=== PATIENT | male | born 1960 | race Caucasian/White ===

== ENCOUNTER 2016-08-12 06:57 | Emergency (ER) | payer BC, OTHER ==
[2016-08-12] MEDS ORDERED: ONDANSETRON HCL INJ/PF 4 MG/2 ML SDV ONE (08:22)
[2016-08-12] MEDS ORDERED: ASPIRIN 81 MG TABLET, CHEWABLE PO ONE (08:45)
[2016-08-12] MEDS ORDERED: MECLIZINE HCL 25 MG TABLET PO ONE ×2 (08:46→09:11)
[2016-08-12 08:55] LABS: ABSOLUTE BASOPHILS # (AUTO) 0.1 10^3/uL (0.0-0.2); ABSOLUTE EOSINOPHILS # (AUTO) 0.2 10^3/uL (0.0-0.6); ABSOLUTE LYMPHOCYTES (AUTO) 1.3 10^3/uL (0.5-4.7); ABSOLUTE MONOCYTES (AUTO) 0.7 10^3/uL (0.1-1.4); ABSOLUTE NEUT (AUTO) 7.9 10^3/uL (1.7-8.2); BASOPHILS % (AUTO) 0.8 % (0-2); EOSINOPHILS % (AUTO) 2.1 % (0-6); HEMATOCRIT 42.1 % (37.9-51.0); HEMOGLOBIN 14.2 g/dL (13.5-17.0); HGB HCT DIFFERENCE 0.5; LYMPHOCYTES % (AUTO) 12.7 % (13-45); MEAN CORPUSCULAR HGB CONC 33.6 g/dL (32.0-36.0); MEAN CORPUSCULAR VOLUME 92 fl (80-97); MONOCYTES % (AUTO) 6.7 % (3-13); RED BLOOD COUNT 4.57 10^6/uL (4.35-5.55); RED CELL DISTRIBUTION WIDTH 14.6 % (11.5-14.0); SEGMENTED NEUTROPHILS % (AUTO) 77.7 % (42-78); WHITE BLOOD COUNT 10.2 10^3/uL (4.0-10.5)
[2016-08-12 09:09] LABS: ALANINE AMINOTRANSFERASE 40 U/L (21-72); ALBUMIN 4.5 g/dL (3.5-5.0); ALKALINE PHOSPHATASE 62 U/L (38-126); ANION GAP 13 (5-19); ASPARTATE AMINO TRANSFERASE 23 U/L (17-59); BILIRUBIN,TOTAL 0.6 mg/dL (0.2-1.3); BLOOD UREA NITROGEN 21 mg/dL (7-20); CALCIUM 9.6 mg/dL (8.4-10.2); CARBON DIOXIDE 24 mmol/L (22-30); CHLORIDE 104 mmol/L (98-107); CREATINE KINASE 184 U/L (55-170); CREATININE RESULT 0.72 mg/dL (0.52-1.25); GLUCOSE 134 mg/dL (75-110); LIPASE 332.7 U/L (23-300); MAGNESIUM 1.9 mg/dL (1.6-2.3); POTASSIUM 4.8 mmol/L (3.6-5.0); SODIUM 140.6 mmol/L (137-145); TOTAL PROTEIN 7.1 g/dL (6.3-8.2)
--- NOTE | 2016-08-12 09:12 | ER Document Report ---
ED Dizziness/Weakness - General Chief Complaint: Syncope Stated Complaint: HEADACHE,NAUSEA,VOMITING Mode of Arrival: Ambulatory Information source: Patient Notes: Patient states that he woke up around 2:00 this morning while he was in bed complaining of tunnel vision, dizziness and a headache. Patient states headache pain lasted for about 3 hours. Patient states that around 5:00 he got out of bed and became so dizzy that it caused him to fall to his knees. Patient denies any loss of consciousness. Patient does report that the dizziness made him nauseous and he vomited one time. Patient states around this time he did develop some chest discomfort that he describes as an irritation. Patient states that he was not too concerned with the chest discomfort as he has had multiple episodes of pericarditis in the past. Patient states that headache pain has presently resolved. Patient denies any shortness of breath. Patient states that dizzy symptoms are resolved whenever he is lying supine and not moving. TRAVEL OUTSIDE OF THE [place] IN LAST 30 DAYS: No - HPI Patient complains to provider of: Dizziness, Vertigo Onset: This morning Onset/Duration: Persistent Quality of pain: Burning Pain Level: 1 Context: Vertigo Associated symptoms: Chest pain, Dizzy, Headache, Vertigo, Vomiting Exacerbated by: Change in position Baseline gait: Walks w/o assistance - Related Data Allergies/Adverse Reactions: No Known Allergies Allergy (Unverified 08/12/16 07:11) Past Medical History - General Information source: Patient - Social History Smoking Status: Current Some Day Smoker Chew tobacco use (# tins/day): No Frequency of alcohol use: Social Drug Abuse: None 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 Lives with: Spouse/Significant other Family History: Reviewed & Not Pertinent Patient has suicidal ideation: No Patient has homicidal ideation: No - Past Medical History Cardiac Medical History: Reports: Hx Hypercholesterolemia, Other - Pericarditis Neurological Medical History: Reports: Hx Migraine Endocrine Medical History: Reports: Hx Diabetes Mellitus Type 2 Renal/ Medical History: Denies: Hx Peritoneal Dialysis Musculoskeltal Medical History: Reports Hx Arthritis - Rheumatoid arthritis Past Surgical History: Reports: Hx Herniorrhaphy, Other - Left eye surgery after injury Review of Systems - Review of Systems Constitutional: No symptoms reported. denies: Fever, Recent illness EENT: No symptoms reported. denies: Ear pain, Nose congestion, Nose discharge, Sinus pressure Cardiovascular: Chest pain, Dizziness Respiratory: No symptoms reported. denies: Cough, Short of breath Gastrointestinal: Nausea, Vomiting. denies: Abdominal pain, Diarrhea Genitourinary: No symptoms reported Male Genitourinary: No symptoms reported Musculoskeletal: No symptoms reported Skin: No symptoms reported. denies: Rash Hematologic/Lymphatic: No symptoms reported Neurological/Psychological: Headaches. denies: Confusion Physical Exam - Vital signs Vitals: Temp Pulse Resp BP Pulse Ox 97.2 F 66 22 H 147/86 H 98 08/12/16 07:00 08/12/16 07:00 08/12/16 07:00 08/12/16 07:00 08/12/16 07:00 - General General appearance: Appears well, Alert In distress: None - HEENT Head: Normocephalic, Atraumatic Eyes: Other - Left pupil irregularity Conjunctiva: Normal Pupils: PERRL - Right pupil 2 mm Ears: Normal External canal: Normal Tympanic membrane: Normal Nasal: Normal. No: Clear rhinorrhea Mouth/Lips: Normal Mucous membranes: Normal Pharynx: Normal. No: Exudate, Peritonsillar abscess, Tonsillar hypertrophy Neck: Normal, Supple. No: Lymphadenopathy, Meningismus - Respiratory Respiratory status: No respiratory distress Chest status: Nontender Breath sounds: Normal. No: Rales, Rhonchi, Stridor, Wheezing Chest palpation: Normal. No: [place] frothy sputum - Cardiovascular Rhythm: Regular Heart sounds: S1 appreciated, S2 appreciated Murmur: No - Abdominal Inspection: Obese Distension: No distension Bowel sounds: Normal Tenderness: Nontender - Back Back: Normal. No: CVA tenderness - Extremities General upper extremity: Normal inspection, Normal strength General lower extremity: Normal inspection, Normal strength - Neurological Neuro grossly intact: Yes Cognition: Normal [place] Coma Scale Eye Opening: Spontaneous [place] Coma Scale Verbal: Oriented [place] Coma Scale Motor: Obeys Commands [place] Coma Scale Total: 15 Speech: Normal Cranial nerves: Normal - Psychological Associated symptoms: Normal affect, Normal mood - Skin Skin Temperature: Warm Skin Moisture: Dry Skin Color: Normal Course - Re-evaluation Re-evalutation: 08/12/16 09:[address] Go who recommends increasing dose of meclizine to a total of 50 mg by mouth as well as CT imaging of the head. 08/12/16 11:35 Patient denies any nausea, vomiting, dizziness or chest pain symptoms at present. Patient states he feels much better. Patient does complain of mild headache that started up again, but declines taking any medication for this stating that it is only mild. 08/12/16 12:58 Patient feeling better, states that he is ready to leave. Consulted with Dr. Go regarding patient presentation and repeat diagnostic tests. Does not recommend any additional testing, agrees with plan for discharge. Recommends having patient follow up with his primary doctor tomorrow for recheck. 08/12/16 13:01 Patient advised of abnormalities and diagnostic test results including BUN, glucose, CK as well as lipase. Patient states chronically has BUN, glucose and CK tests have been abnormal. Patient advised to avoid alcohol consumption and to have his lipase test rechecked by his primary care provider - Vital Signs Vital signs: Temp Pulse Resp BP Pulse Ox 97.2 F 66 9 L 132/85 H 98 08/12/16 07:03 08/12/16 07:03 08/12/16 12:01 08/12/16 12:01 08/12/16 12:01 - Laboratory Result Diagrams: 08/12/16 08:20 08/12/16 08:20 Laboratory results interpreted by me: 08/12/16 08/12/16 08:20 08:20 RDW 14.6 H Lymphocytes % 12.7 L BUN 21 H Glucose 134 H Creatine Kinase 184 H Lipase 332.7 H 08/12/16 13:38 Labs- Entire Visit 08/12/16 08/12/16 08/12/16 08:20 08:20 08:20 WBC 10.2 RBC 4.57 Hgb 14.2 Hct 42.1 MCV 92 MCH 31.0 MCHC 33.6 RDW 14.6 H Plt Count 280 Seg Neutrophils % 77.7 Lymphocytes % 12.7 L Monocytes % 6.7 Eosinophils % 2.1 Basophils % 0.8 Absolute Neutrophils 7.9 Absolute Lymphocytes 1.3 Absolute Monocytes 0.7 Absolute Eosinophils 0.2 Absolute Basophils 0.1 Sodium 140.6 Potassium 4.8 Chloride 104 Carbon Dioxide 24 Anion Gap 13 BUN 21 H Creatinine 0.72 Est GFR ( Amer) > 60 Est GFR (Non-Af Amer) > 60 Glucose 134 H Calcium 9.6 Magnesium 1.9 Total Bilirubin 0.6 Direct Bilirubin 0.0 AST 23 ALT 40 Alkaline Phosphatase 62 Creatine Kinase 184 H CK-MB (CK-2) 3.03 Troponin I < 0.012 Total Protein 7.1 Albumin 4.5 Lipase 332.7 H Urine Color Urine Appearance Urine pH Ur Specific [place] Urine Protein Urine Glucose (UA) Urine Ketones Urine Blood Urine Nitrite Urine Bilirubin Urine Urobilinogen Ur Leukocyte Esterase Urine WBC (Auto) Urine RBC (Auto) Urine Mucus (Auto) Urine Ascorbic Acid 08/12/16 08/12/16 09:10 11:15 WBC RBC Hgb Hct MCV MCH MCHC RDW Plt Count Seg Neutrophils % Lymphocytes % Monocytes % Eosinophils % Basophils % Absolute Neutrophils Absolute Lymphocytes Absolute Monocytes Absolute Eosinophils Absolute Basophils Sodium Potassium Chloride Carbon Dioxide Anion Gap BUN Creatinine Est GFR ( Amer) Est GFR (Non-Af Amer) Glucose Calcium Magnesium Total Bilirubin Direct Bilirubin AST ALT Alkaline Phosphatase Creatine Kinase CK-MB (CK-2) Troponin I < 0.012 Total Protein Albumin Lipase Urine Color STRAW Urine Appearance CLEAR Urine pH 5.0 Ur Specific [place] 1.013 Urine Protein NEGATIVE Urine Glucose (UA) NEGATIVE Urine Ketones NEGATIVE Urine Blood NEGATIVE Urine Nitrite NEGATIVE Urine Bilirubin NEGATIVE Urine Urobilinogen NEGATIVE Ur Leukocyte Esterase NEGATIVE Urine WBC (Auto) 1 Urine RBC (Auto) 0 Urine Mucus (Auto) RARE Urine Ascorbic Acid NEGATIVE - Diagnostic Test Radiology reviewed: Reports reviewed - EKG Interpretation by [facility] EKG shows normal: Sinus rhythm Heart block present: 1st Degree Discharge - Discharge Clinical Impression: Vertigo Headache Qualifiers: Headache type: unspecified Headache chronicity pattern: unspecified pattern Intractability: not intractable Qualified Code(s): R51 - Headache Chest pain Qualifiers: Chest pain type: unspecified Qualified Code(s): R07.9 - Chest pain, unspecified Condition: Stable Disposition: HOME, SELF-CARE Instructions: Vertigo ([facility]), Chest Pain of Unclear Cause ([facility]), Meclizine ([facility]) Additional Instructions: Return immediately for any new or worsening symptoms Followup with your primary care provider, call today to make an appointment for tomorrow for follow-up Prescriptions: Meclizine HCl [Antivert 25 mg Tablet] 25 mg PO ASDIR PRN #15 tablet PRN Reason: Referrals: DANIEL GRIER DO [Primary Care Provider] - Follow up as needed ANIVAL LONDONO MD [COMMUNITY BASED STAFF] - Follow up tomorrow
[2016-08-12 09:17] LABS: CREATINE KINASE MB 3.03 ng/mL (<4.55)
[2016-08-12 09:18] LABS: TROPONIN I < 0.012 ng/mL
[2016-08-12 09:38] LABS: APPEARANCE,URINE CLEAR; BILIRUBIN,URINE NEGATIVE (NEGATIVE); GLUCOSE, URINE NEGATIVE (NEGATIVE); KETONES,URINE NEGATIVE (NEGATIVE); LEUKOCYTE ESTERASE,URINE NEGATIVE (NEGATIVE); NITRITE,URINE NEGATIVE (NEGATIVE); PROTEIN,URINE NEGATIVE (NEGATIVE); URINE SPECIFIC GRAVITY 1.013; UROBILINOGEN,URINE NEGATIVE mg/dL (<2.0)
[2016-08-12 13:02] VITALS: BP 132/85
--- NOTE | 2016-08-12 18:26 | EKG REPORT ---
SEVERITY:- ABNORMAL ECG - SINUS RHYTHM FIRST DEGREE AV BLOCK NONSPECIFIC INTRAVENTRICULAR CONDUCTION DELAY PROBABLE LEFT VENTRICULAR HYPERTROPHY : Confirmed by: Rei Monge MD 12-Aug-2016 18:24:55
== END 2016-08-12 13:10 | disposition home or self-care (01) ==
LOC: ER 06:57
DX: R42 Dizziness and giddiness (principal); R51 Headache; R11.2 Nausea with vomiting, unspecified; R07.9 Chest pain, unspecified; I44.0 Atrioventricular block, first degree; H21.562 Pupillary abnormality, left eye; F17.200 Nicotine dependence, unspecified, uncomplicated; E11.9 Type 2 diabetes mellitus without complications; Z86.79 Personal history of other diseases of the circulatory system
CPT/HCPCS: 93005; 99285; 96374; 36415; 82553; 82550; 83690; 83735; 85025; 80053; 81001; 84484; 71020; 70450; 93010; J2405

== ENCOUNTER → 2018-08-26 | Outpatient (CLI) | payer BC, OTHER ==
--- NOTE | 2018-08-27 08:46 | RADIOLOGY REPORT (SQ) ---
EXAM DESCRIPTION: MRI LT UPPER JOINT WITHOUT COMPLETED DATE/TIME: 08/26/2018 5:37 pm REASON FOR STUDY: M25.512 PAIN IN LEFT SHOULDER M25.512 PAIN IN LEFT SHOULDER COMPARISON: None. TECHNIQUE: Left shoulder images acquired and stored on PACS. Multiplanar imaging to include fat sens itive sequences such as T1, water sensitive sequences such as FST2/STIR, cartilage sensitive sequence s such as FSPD/gradient-echo sequences. LIMITATIONS: Motion. FINDINGS: BONE MARROW AND CORTEX: No worrisome bone lesions or marrow replacement. No occult fractur es. JOINT OR BURSAL EFFUSION: Rim of fluid surrounding the cuff. No significant bursal fluid collection. GLENO-HUMERAL ARTICULATION: Intact. ACROMION AND AC JOINT: Type 2 acromion. Mild AC joint arthropathy. ROTATOR CUFF AND INTERVAL: Musculature is symmetric. There is high signal in the subscapularis suspi cious for a hidden lesion. Tendinosis and mild peritendinitis supraspinatus and infraspinatus. Smal l interstitial tear infraspinatus musculotendinous junction. Mild fibrosis in the rotator interval. LABRUM AND BICEPS LABRAL COMPLEX: Intact. No labral tear. Intra-articular long-head biceps tendon n ormal. Distal biceps in normal location in bicipital groove. REMAINDER OF LABRUM AND IGHL : No gross tear or paralabral cyst formation. Labral evaluation is less than optimal without joint distention. No thickening of IGHL to suggest adhesive capsulitis. PERIARTICULAR AND ADJACENT SOFT TISSUES: No masses or abnormal nodes. OTHER: No other significant finding. IMPRESSION: 1. Limitations due to motion. Suspected hidden lesion subscapularis. 2. Tendinosis and mild peritendinitis. Small intrasubstance tear infraspinatus musculotendinous junc tion. 3. AC joint arthropathy. TECHNICAL DOCUMENTATION: JOB ID: [id number] [employer]- All Rights Reserved Reading location - IP/workstation name: [email or web address]
== END ==
LOC: RAD 16:30
PROVIDERS: ATTEND Orthopaedic Surgery
DX: M25.512 Pain in left shoulder (principal)